=== PATIENT | male | born 2000 | race Hispanic/Latino ===

== ENCOUNTER 2021-01-08 08:10 | Emergency (ER) | payer OTHER ==
[~2021-01-08] VITALS: Ht 185.4 cm; Wt 113.8 kg
--- NOTE | 2021-01-08 10:10 | REP ---
INDICATION: concern for R sided hernia COMPARISON: None. TECHNIQUE: Directed B-mode ultrasound examination using linear high-frequency transducer. FINDINGS: Directed ultrasound examination demonstrates no evidence for hernia at the right groin. Incidental single relatively normal appearing lymph node measures 2.9 x 2.7 x 1.0 cm. No abnormal fluid collection or mass lesion otherwise appreciated to the right groin. IMPRESSION: Single mildly prominent but normal appearing lymph node in the right groin. <Electronically signed by Saul Muller > 01/08/21 [id number]
[2021-01-08 10:22] VITALS: BP 36/63
== END 2021-01-08 10:25 | disposition home or self-care (01) ==
LOC: M ED 08:10
DX: R59.9 Enlarged lymph nodes, unspecified (principal); S76.811A Strain of other specified muscles, fascia and tendons at thigh level, right thigh, initial encounter; X50.0XXA Overexertion from strenuous movement or load, initial encounter; Y92.9 Unspecified place or not applicable; Y93.9 Activity, unspecified; Y99.8 Other external cause status

== ENCOUNTER 2021-05-01 01:43 | Emergency (ER) | payer OTHER ==
[~2021-05-01] VITALS: Ht 185.4 cm; Wt 116.0 kg
[2021-05-01] MEDS ORDERED: ZOLO50TA PO (01:52)
--- OUTSIDE RECORDS SUMMARY | 2021-05-01 01:53 | CCD ---
Author Author [facility] Organization [facility] Address Unknown Phone Unavailable Support Name Relationship Address Phone [facility] Next Of Kin [address] [place] [address] Unavailable GIRISH LIAO Next Of Kin [id number] [place] [address] GIRISH LIAO ECON [address] [place] [address] Unavailable Re-disclosure Warning The records that you are about to access may contain information from federally-assisted alcohol or drug abuse programs. If such information is present, then the following federally mandated warning applies: This information has been disclosed to you from records protected by federal confidentiality rules (42 CFR part 2). The federal rules prohibit you from making any further disclosure of this information unless further disclosure is expressly permitted by the written consent of the person to whom it pertains or as otherwise permitted by 42 CFR part 2. A general authorization for the release of medical or other information is NOT sufficient for this purpose. The Federal rules restrict any use of the information to criminally investigate or prosecute any alcohol or drug abuse patient.The records that you are about to access may contain highly sensitive health information, the redisclosure of which is protected by Article 27-F of the [facility] Public Health law. If you continue you may have access to information: Regarding HIV / AIDS; Provided by facilities licensed or operated by the [facility] Office of Mental Health; or Provided by the [facility] Office for People With Developmental Disabilities. If such information is present, then the following [facility] mandated warning applies: This information has been disclosed to you from confidential records which are protected by state law. State law prohibits you from making any further disclosure of this information without the specific written consent of the person to whom it pertains, or as otherwise permitted by law. Any unauthorized further disclosure in violation of state law may result in a fine or senior care sentence or both. A general authorization for the release of medical or other information is NOT sufficient authorization for further disc losure. Immunizations Vaccine Date Status Description Data Source(s) COVID-19 VACCINE [facility] 11/02/2020 12:00:00 AM EDT completed [facility] Vaccine Series Complete: YESThis Data wa s Submitted to [facility] Via [employer]. COVID-19 VACCINE [facility] 10/12/2020 12:00:00 AM EDT [facility] Complete: NOThis Data was Submitted to [facility] Via [employer]. Medications No Information Insurance Providers Payer name Policy type / Coverage type Policy ID Covered republican ID Covered republican's relationship to allan Policy Allan Plan Information [facility] [employer] [id number] Problems, Conditions, and Diagnoses No Information Surgeries/Procedures No Information Results No Information Social History No Information
--- NOTE | 2021-05-01 03:29 | REPVR ---
PROCEDURE INFORMATION: Exam: XR Right Elbow Exam date and time: 05/01/2021 1:56 AM Age: 20 years old Clinical indication: Other: Fall injury TECHNIQUE: Imaging protocol: XR Right elbow. Views: 3 or more views. COMPARISON: No relevant prior studies available. FINDINGS: Bones/joints: No fracture. No dislocation. Joint spaces are preserved. Soft tissues: Normal. IMPRESSION: No acute fracture. Electronically signed by: Pool Plasencia On 05/01/2021 03:28:36 AM
--- NOTE | 2021-05-01 03:29 | REPVR ---
PROCEDURE INFORMATION: Exam: XR Right Humerus Exam date and time: 05/01/2021 1:56 AM Age: 20 years old Clinical indication: Fall; Additional info: Fall injury TECHNIQUE: Imaging protocol: XR Right humerus. Views: 2 or more views. COMPARISON: No relevant prior studies available. FINDINGS: Limitations: Bones/joints: Normal. No acute fracture. No dislocation. Soft tissues: Normal. IMPRESSION: No acute fracture. Electronically signed by: Pool Plasencia On 05/01/2021 03:28:51 AM
--- NOTE | 2021-05-01 03:32 | REPVR ---
PROCEDURE INFORMATION: Exam: XR Right Shoulder Exam date and time: 05/01/2021 1:56 AM Age: 20 years old Clinical indication: Other: Fall injury TECHNIQUE: Imaging protocol: XR Right shoulder. Views: 2 or more views. Transscapular view was also included. COMPARISON: No relevant prior studies available. FINDINGS: Bones/joints: No acute fracture. No dislocation. Acromioclavicular joint is not widened. Mild elevation of the distal clavicle at the acromioclavicular joint measuring 5 mm. Soft tissues: Normal. IMPRESSION: Mild elevation of the distal clavicle at the acromioclavicular joint. Suspect grade 2 AC joint separation. Electronically signed by: Pool Plasencia On 05/01/2021 03:31:35 AM
[2021-05-01 06:40] VITALS: BP 135/72
--- OUTSIDE RECORDS SUMMARY | 2021-05-01 06:48 | CCD ---
Author Author [facility] Address Unknown Phone Unavailable Support Name Relationship Address Phone [facility] Next Of Kin [address] [place] [address] Unavailable GIRISH LIAO Next Of Kin [address] [place] [address] GIRISH LIAO ECON [address] [place] [place] [address] Unavailable Re-disclosure Warning The records that you [...] is protected by Article 27-F of the [facility] Public Health law. If you continue you may have access to information: Regarding HIV / AIDS; Provided by facilities licensed or operated by the [facility] Office of Mental Health; or Provided by the [facility] Office for People With Developmental Disabilities. If such information is present, then the following [facility] mandated warning applies: This information has been [...] law may result in a fine or usp sentence or both. A general authorization for the release of medical or other information is NOT sufficient authorization for further disc losure. Immunizations Vaccine Date Status Description Data Source(s) COVID-19 VACCINE [email or web address] 11/02/2020 12:00:00 AM EDT completed [employer] Vaccine Series Complete: YESThis Data wa s Submitted to [facility] Via [employer]. COVID-19 VACCINE [email or web address] 10/12/2020 12:00:00 AM EDT [facility] Complete: NOThis Data was Submitted to [facility] Via [employer]. Medications No Information Insurance Providers Payer name Policy type / Coverage type Policy ID Covered libertarian ID Covered libertarian's relationship to allan Policy Allan Plan Information [facility] [employer] [id number] Problems, Conditions, and Diagnoses No Information Surgeries/Procedures No Information Results No Information Social History No Information
== END 2021-05-01 06:49 | disposition home or self-care (01) ==
LOC: M ED 01:43
DX: S43.101A Unspecified dislocation of right acromioclavicular joint, initial encounter (principal); W01.0XXA Fall on same level from slipping, tripping and stumbling without subsequent striking against object, initial encounter; Y92.821 Forest as the place of occurrence of the external cause; Y93.89 Activity, other specified; Y99.1 Military activity